=== PATIENT | female | born 1955 | race African-American/Black ===

== ENCOUNTER 2017-10-08 08:10 | Day surgery (SDC) | payer OTHER, BC ==
[2017-10-06 17:05] VITALS: BMI 40.8
--- NOTE | 2017-10-08 09:44 | HP ---
[facility] - Chief Complaint Chief Complaint: left hand pain, numbness History of Present Illness: left CTS History Source: Patient Limitations to Obtaining History: No Limitations - Past Medical History Allergies/Adverse Reactions: Allergies Allergy/AdvReac Type Severity Reaction Status Date / Time Penicillins Allergy Rash Verified 10/08/17 09:18 phenytoin sodium Allergy Rash Verified 10/08/17 09:18 [From Dilantin] phenytoin sodium extended Allergy Rash Verified 10/08/17 09:18 [From Dilantin] - Current Medications Current Medications: Home Medications Medication Instructions Recorded Amlodipine Besylate [Norvasc -] 5 mg PO DAILY 08/30/14 Clonazepam [Klonopin] 0.5 mg PO TID PRN 08/30/14 Escitalopram Oxalate [Lexapro -] 15 mg PO DAILY 08/30/14 Topiramate [Topamax] 100 mg PO BID 08/30/14 Aspirin [Ecotrin] 81 mg PO DAILY 10/06/17 Atorvastatin Ca [Lipitor] 40 mg PO HS 10/06/17 Ergocalciferol (Vitamin D2) 2,000 unit PO DAILY 10/06/17 [Vitamin D2] Ferrous Sulfate [Feosol] 325 mg PO DAILY 10/06/17 Folic Acid 1 mg PO DAILY 10/06/17 Gabapentin [Neurontin -] 600 mg PO Q8H 10/06/17 Insulin Pump Cartridge [Cartridge 1 each SQ DAILY 10/06/17 Stamped] Levothyroxine [Synthroid -] 50 mcg PO DAILY 10/06/17 Losartan/Hydrochlorothiazide 2 each PO DAILY 10/06/17 [Losartan-Hctz 50-12.5 mg Tab] Methotrexate Sodium [Methotrexate] 8 tab PO WEEKLY 10/06/17 [place]-3 Fatty Acids/Fish Oil [Fish 1 each PO BID 10/06/17 Oil 1,000 mg Capsule] Ranitidine HCl 150 mg PO BID 10/06/17 Rotigotine [Neupro] 1 each TD PRN PRN 10/06/17 Satellite Physical Exam - Physical Examination Vital Signs: Vital Signs Period Temp Pulse Resp BP Sys/Crow Pulse Ox Last 24 Hr 97.8 F 94 20 135/73 97 General Appearance: Well Nourished ENT: Clear Lung: Clear to auscultation Heart: Regular rate & rhythm Breasts: Soft Abdomen: Soft Extremities: No edema Satellite Impression/Plan - Impression/Plan Impression: left CTS Operative Procedure: left CTR Date to be Performed: 10/08/17
[2017-10-08] MEDS ORDERED: LIDOCAINE HCL 1%, 10 MG/ML (20ML VIAL) ONE (09:51)
[2017-10-08] MEDS ORDERED: BUPIVACAINE HCL/PF 0.5% (5MG/ML) 10 ML VIAL ONE (09:52)
[2017-10-08] MEDS ORDERED: MIDAZOLAM HCL 2 MG/2 ML SINGLE DOSE VIAL ONE (10:06)
[2017-10-08] MEDS ORDERED: CLINDAMYCIN PHOSPHATE 600 MG/4 ML VIAL ONE (10:18)
[2017-10-08] MEDS ORDERED: CLINDAMYCIN 600 MG PREMIX BAG IVPB ONE (10:19)
[2017-10-08] MEDS ORDERED: PROPOFOL 20 ML ONE (10:28)
[2017-10-08] MEDS ORDERED: BUPIVACAINE HCL/PF 0.5% (5MG/ML) 10 ML VIAL IJ ONE (10:30)
[2017-10-08] MEDS ORDERED: LIDOCAINE HCL 1%, 10 MG/ML (20ML VIAL) NR ONE (10:30)
--- NOTE | 2017-10-08 10:50 | OP ---
Operative Note - Note: Operative Date: 10/08/17 Pre-Operative Diagnosis: left CTS Operation: left CTR, tenosynovectomy Post-Operative Diagnosis: Same as Pre-op Surgeon: Josh Pérez Anesthesiologist/BRICK WHEELER: Naga Blancas Anesthesia: Local, MAC Specimens Removed: tenosynovium Estimated Blood Loss (mls): 0 Blood Volume Replaced (mls): 0 Fluid Volume Replaced (mls): 500 Operative Report Dictated: Yes
[2017-10-08] MEDS ORDERED: ONDANSETRON 4 MG/2 ML VIAL IVPUSH PRN (10:58)
[2017-10-08] MEDS ORDERED: oxyCODONE HCL 5 MG TABLET PO PRN (10:58)
[2017-10-08] MEDS ORDERED: LACTATED RINGERS SOLUTION 1,000 ML IV SCH (11:00)
--- NOTE | 2017-10-08 11:51 | SPEC ---
DATE OF OPERATION: 10/08/2017 PREOPERATIVE DIAGNOSIS: Left carpal tunnel syndrome. POSTOPERATIVE DIAGNOSIS: Left carpal tunnel syndrome. PROCEDURE: Left carpal tunnel release and tenosynovectomy. Tenosynovectomy was performed off of all the flexor tendons. SURGEON: Josh Pérez MD MACHINIST CLASS B: None. ANESTHESIOLOGIST: Dylan Blancas MD ANESTHESIA: MAC anesthesia, local injection of 12 mL 0.5% Marcaine, 1% lidocaine mixed. DRAINS: None. COMPLICATIONS: None. SPECIMENS: Tenosynovium, left wrist. BLOOD LOSS: None. BLOOD GIVEN: None. FLUID REPLACEMENT: 500 mL. After understanding the potential risks, complications, alternatives and benefits of surgery versus nonsurgical treatment, the patient elected to undergo this procedure. DESCRIPTION OF PROCEDURE: The patient was brought to the operating room, peripheral IV placed and intravenous sedation was given. One gram of intravenous Ancef was given. MAC anesthesia was induced. A tourniquet was applied to the left upper arm and the left upper extremity was prepped and draped in sterile fashion. The entire case was done under 3.8 loupe magnification. A marking pen was utilized to armando out a longitudinal incision in an already existing skin crease. Twenty mL of 0.5% Marcaine mixed with 1% Lidocaine was injected in and around the surgical incision. The left upper extremity was elevated, exsanguinated with an Esmarch bandage and the tourniquet inflated to 250 mmHg. A No. 15 scalpel blade was utilized to cut down through the skin. Subcutaneous hemostasis was achieved with the bipolar cautery. Dissection was done through the superficial palmar fascia. Self-retaining retractors were placed into the wound. Under direct visualization, the transverse carpal ligament was transected with a No. 15 scalpel blade, exposing the median nerve and the contents of the carpal tunnel. The distal and proximal extents of the release were completed with a Littler scissor and checked with irrigation and my small finger. They were seen to be complete. Limited dissection was done on the radial side of the median nerve and more extensive dissection was done on the ulnar side of the median nerve. The patients nerve was seen to be quite compressed by epineurium and therefore a limited epineurotomy was performed. A Ragnell retractor was used to gently retract the median nerve in a radial direction. The patient had a lot of tenosynovitis and therefore a tenosynovectomy was performed off all 9 flexor tendons. This was passed off the field as tenosynovium left wrist. The floor of the carpal tunnel was checked. There were no abnormal masses or ganglion cysts. The area was copiously irrigated and washed out and closure begun. Undyed 4-0 Vicryl was used to close the deep dermal layer. Final skin reapproximation was done with horizontal mattress 4-0 nylon sutures. The area was then washed and dried, covered with Xeroform, 4x4s, fluffs between the fingers, Webril and a 4-inch plaster roll was utilized to make a volar splint, which was then wrapped with Robinson and Coban. The tourniquet was taken down after a total tourniquet time of 17 minutes. There were no complications during the case. The patient tolerated the procedure well and was brought to the ambulatory recovery room in stable condition. Nava [id number]
[2017-10-08 12:04] VITALS: TEMP 98.1
[2017-10-08 13:45] VITALS: BP 114/63; PULSE 87
--- NOTE | 2017-10-09 15:48 | PATH ---
Surgical Pathology Report Patient Name: BUTCH REAGAN [facility]. Rec. #: [id number] /Age/Gender: 1955 (Age: 62) / F Account: [id number] Location: [facility] SUR[facility] Taken: 10/08/2017 Received: 10/08/2017 Reported: 10/09/2017 Physicians: Josh Pérez M.D. Specimen(s) Received TENOSYNOVIUM Clinical History Left carpal tunnel Final Diagnosis TENOSYNOVIUM, LEFT, EXCISION: BENIGN DENSE FIBROCONNECTIVE TISSUE. Electronically Signed Minnie Bowers M.D. Gross Description Received in formalin labeled "left tenosynovium," is a 1.5 x 1.2 x 0.3 cm aggregate of jensen-yellow, irregular portions of soft tissue, consistent with tenosynovium. The specimen is entirely submitted in one cassette. 10/08/201710/08/2017
== END 2017-10-08 13:45 | disposition home or self-care (01) ==
LOC: JASU-SURG 08:10
PROVIDERS: ATTEND Orthopaedic Surgery
PROC: 01N50ZZ Release Median Nerve, Open Approach (ICD-10-PCS; principal; 2017-10-08 09:30)
DX: G56.02 Carpal tunnel syndrome, left upper limb (principal)
CPT/HCPCS: 88304-TC

== ENCOUNTER 2022-04-03 19:06 | Observation (INO) | payer OTHER, BC ==
[2022-04-03] MEDS ORDERED: SODIUM CHLORIDE 0.9% 500 ML INFUS.BAG IV ONE (21:01)
[2022-04-03] MEDS ORDERED: ONDANSETRON 4 MG/2 ML VIAL IVPUSH ONE (21:01)
[2022-04-03] MEDS ORDERED: FAMOTIDINE 20 MG/50 ML IVPB 20 MG/50 ML MG IVPB ONE ×2 (21:01→21:29)
[2022-04-03] MEDS ORDERED: ONDANSETRON 4 MG/2 ML VIAL ONE (21:29)
[2022-04-03 21:36] LABS: BASO % 0.4 % (0-2.0); EOS % 0.9 % (0-4.5); HEMATOCRIT 37.5 % (32.4-45.2); HEMOGLOBIN 11.9 GM/dL (10.7-15.3); LYMPH % 22.6 % (8-40); MCH 21.3 pg (25.7-33.7); MCHC 31.8 g/dl (32.0-36.0); MEAN CELL VOLUME 66.9 fl (80-96); MEAN PLT VOLUME 7.9 fl (7.5-11.1); MONO % 9.6 % (3.8-10.2); NEUT % 66.5 % (42.8-82.8); PLATELET COUNT 237 10^3/uL (134-434); RBC 5.61 M/mm3 (3.60-5.2); RDW 14.8 % (11.6-15.6)
[2022-04-03 22:02] LABS: INR 1.08 (0.83-1.09); PROTHROMBIN TIME (PATIENT) 12.4 SEC (9.7-13.0)
[2022-04-03 22:05] LABS: ACTIVATED PTT 26.9 SECONDS (25.2-36.5)
[2022-04-03 22:48] LABS: ANISOCYTOSIS 1+; MACROCYTOSIS 1+; PLATELET ESTIMATE NORMAL
[2022-04-03 23:57] LABS: ALBUMIN 3.5 g/dl (3.4-5.0); CALCIUM 9.6 mg/dL (8.5-10.1); MAGNESIUM 1.7 mg/dL (1.8-2.4)
[2022-04-04 00:01] LABS: BILIRUBIN,TOTAL 0.8 mg/dL (0.2-1); TOT PROT 7.7 g/dl (6.4-8.2)
[2022-04-04] MEDS ORDERED: KETOROLAC TROMETHAMINE 15 MG/ML VIAL IM ONE (03:53)
[2022-04-04] MEDS ORDERED: KETOROLAC TROMETHAMINE 15 MG/ML VIAL ONE (04:02)
[2022-04-04 07:53] LABS: HEMATOCRIT 33.8 % (32.4-45.2); MCH 21.4 pg (25.7-33.7); MCHC 32.5 g/dl (32.0-36.0); MEAN CELL VOLUME 65.9 fl (80-96); MEAN PLT VOLUME 7.9 fl (7.5-11.1); PLATELET COUNT 230 10^3/uL (134-434); RBC 5.14 M/mm3 (3.60-5.2); RDW 14.8 % (11.6-15.6); WHITE BLOOD COUNT 9.6 K/mm3 (4.0-10.0)
[2022-04-04 08:22] LABS: BLOOD UREA NITROGEN 8.5 mg/dL (7-18); MAGNESIUM 1.6 mg/dL (1.8-2.4)
[2022-04-04 08:24] LABS: CREATININE 0.8 mg/dL (0.55-1.3); PHOSPHOROUS 3.2 mg/dL (2.5-4.9)
[2022-04-04 08:26] LABS: BILIRUBIN,TOTAL 0.7 mg/dL (0.2-1); TOT PROT 6.6 g/dl (6.4-8.2)
[2022-04-04] MEDS ORDERED: ESCITALOPRAM OXALATE 10 MG TABLET ONE (09:29)
[2022-04-04] MEDS ORDERED: LOSARTAN POTASSIUM 50 MG TABLET ONE (09:29)
[2022-04-04] MEDS ORDERED: amLODIPine BESYLATE 10 MG TABLET (FP) ONE (09:29)
[2022-04-04] MEDS ORDERED: ENOXAPARIN NA (PORCINE) 40 MG/0.4 ML DISP.SYRIN SQ ONE (09:29)
[2022-04-04] MEDS ORDERED: LEVOTHYROXINE NA 50 MCG TABLET (FP) ONE (09:29)
[2022-04-04] MEDS: ENOXAPARIN NA (PORCINE) 40 MG/0.4 ML DISP.SYRIN SQ SCH (09:40)
[2022-04-04] MEDS: amLODIPine BESYLATE 10 MG TABLET (FP) PO SCH (09:40)
[2022-04-04] MEDS: HYDROCHLOROTHIAZIDE 12.5 MG CAPSULE (FP) PO SCH (09:40)
[2022-04-04] MEDS: ESCITALOPRAM OXALATE 10 MG TABLET PO SCH (09:40)
[2022-04-04] MEDS: LEVOTHYROXINE NA 50 MCG TABLET (FP) PO SCH (09:40)
[2022-04-04] MEDS: LOSARTAN POTASSIUM 50 MG TABLET PO SCH (09:40)
[2022-04-04] MEDS ORDERED: LOSARTAN 50MG/HCTZ 12.5MG 1 TAB PO SCH (10:00)
[2022-04-04 13:32] VITALS: BMI 36.7
[2022-04-04] MEDS ORDERED: PATIENT'S OWN MEDICATION (NON-FORMULARY) (Insulin Aspart [Novolog Flexpen] 100 UNIT/ML Ins SQ SCH (14:00)
[2022-04-04] MEDS ORDERED: ACETAMINOPHEN 325 MG TABLET (FP) PO PRN (15:15)
[2022-04-04] MEDS ORDERED: oxyCODONE HCL 5 MG TABLET PO PRN (15:15)
[2022-04-04] MEDS ORDERED: FAMOTIDINE 10 MG TABLET PO ONE (17:39)
[2022-04-04] MEDS: INSULIN SLIDING SCALE (NOVOLOG) 1 VIAL SQ SCH ×2 (18:18→21:35)
[2022-04-04] MEDS ORDERED: INSULIN (NOVOLOG) ASPART 100 UNITS/ML 10ML VIAL ONE (21:23)
[2022-04-04] MEDS: ATORVASTATIN CA 80 MG TABLET (FP) PO SCH (21:33)
[2022-04-04] MEDS: FAMOTIDINE 10 MG TABLET PO PRN (21:35)
[2022-04-05] MEDS: INSULIN SLIDING SCALE (NOVOLOG) 1 VIAL SQ SCH ×4 (06:43→21:25)
[2022-04-05] MEDS: LEVOTHYROXINE NA 50 MCG TABLET (FP) PO SCH (06:44)
[2022-04-05] MEDS: FAMOTIDINE 10 MG TABLET PO PRN ×2 (06:45→12:02)
[2022-04-05 08:53] LABS: BASO % 0.3 % (0-2.0); EOS % 1.3 % (0-4.5); HEMATOCRIT 34.7 % (32.4-45.2); HEMOGLOBIN 11.4 GM/dL (10.7-15.3); LYMPH % 19.7 % (8-40); MCH 21.6 pg (25.7-33.7); MCHC 32.9 g/dl (32.0-36.0); MEAN CELL VOLUME 65.9 fl (80-96); MEAN PLT VOLUME 7.9 fl (7.5-11.1); MONO % 7.9 % (3.8-10.2); NEUT % 70.8 % (42.8-82.8); PLATELET COUNT 235 10^3/uL (134-434); RBC 5.27 M/mm3 (3.60-5.2); RDW 14.5 % (11.6-15.6); WHITE BLOOD COUNT 7.9 K/mm3 (4.0-10.0)
[2022-04-05 09:18] LABS: CALCIUM 9.3 mg/dL (8.5-10.1)
[2022-04-05 09:20] LABS: CREATININE 0.9 mg/dL (0.55-1.3)
[2022-04-05] MEDS: ENOXAPARIN NA (PORCINE) 40 MG/0.4 ML DISP.SYRIN SQ SCH (11:59)
[2022-04-05] MEDS: ESCITALOPRAM OXALATE 10 MG TABLET PO SCH (12:00)
[2022-04-05] MEDS: HYDROCHLOROTHIAZIDE 12.5 MG CAPSULE (FP) PO SCH (12:01)
[2022-04-05] MEDS: amLODIPine BESYLATE 10 MG TABLET (FP) PO SCH (12:01)
[2022-04-05] MEDS: LOSARTAN POTASSIUM 50 MG TABLET PO SCH (12:01)
[2022-04-05 15:30] LABS: PH,URINE 5.5 (5.0-8.0); URINE APPEARANCE CLEAR; URINE BILIRUBIN NEGATIVE (NEGATIVE); URINE COLOR YELLOW; URINE GLUCOSE (UA) 1+ (NEGATIVE); URINE KETONE TRACE (NEGATIVE); URINE LEUK ESTERASE NEGATIVE (NEGATIVE); URINE NITRITE NEGATIVE (NEGATIVE); URINE PROTEIN TRACE (NEGATIVE); URINE UROBILINOGEN 0.2 mg/dL (0.2-1.0)
[2022-04-05] MEDS: FAMOTIDINE 10 MG TABLET PO SCH (21:21)
[2022-04-05] MEDS: ATORVASTATIN CA 80 MG TABLET (FP) PO SCH (21:21)
[2022-04-05] MEDS ORDERED: ONDANSETRON 4 MG/2 ML VIAL IVPUSH ONE (21:35)
[2022-04-05] MEDS ORDERED: INSULIN (LEVEMIR) 100 UNITS/ML UNITS SQ SCH (22:00)
[2022-04-06] MEDS: LEVOTHYROXINE NA 50 MCG TABLET (FP) PO SCH (06:30)
[2022-04-06] MEDS: INSULIN SLIDING SCALE (NOVOLOG) 1 VIAL SQ SCH ×2 (06:33→11:56)
[2022-04-06 10:47] VITALS: BP 118/53; PULSE 81; RESP 20; TEMP 98.2
[2022-04-06] MEDS: FAMOTIDINE 10 MG TABLET PO SCH (10:48)
[2022-04-06] MEDS: HYDROCHLOROTHIAZIDE 12.5 MG CAPSULE (FP) PO SCH (10:48)
[2022-04-06] MEDS: ESCITALOPRAM OXALATE 10 MG TABLET PO SCH (10:48)
[2022-04-06] MEDS: LOSARTAN POTASSIUM 50 MG TABLET PO SCH (10:48)
[2022-04-06] MEDS: amLODIPine BESYLATE 10 MG TABLET (FP) PO SCH (10:48)
[2022-04-06] MEDS: ENOXAPARIN NA (PORCINE) 40 MG/0.4 ML DISP.SYRIN SQ SCH (11:00)
== END 2022-04-06 13:00 | disposition home or self-care (01) ==
LOC: JER 19:06 → INTOOBSV 04-04 01:52 → UNDOADMOB 04-04 01:52 → JERBED 04-04 01:52 → J7W 04-04 11:47
PROVIDERS: ADMIT Internal Medicine; ATTEND Internal Medicine
PROC: 3E013VG Introduction of Insulin into Subcutaneous Tissue, Percutaneous Approach (ICD-10-PCS; principal; 2022-04-04)
PROC: 3E0233Z Introduction of Anti-inflammatory into Muscle, Percutaneous Approach (ICD-10-PCS; 2022-04-04)
PROC: 3E033GC Introduction of Other Therapeutic Substance into Peripheral Vein, Percutaneous Approach (ICD-10-PCS; 2022-04-04)
PROC: 3E0337Z Introduction of Electrolytic and Water Balance Substance into Peripheral Vein, Percutaneous Approach (ICD-10-PCS; 2022-04-04)
DX: K86.9 Disease of pancreas, unspecified (principal); E03.9 Hypothyroidism, unspecified; E11.9 Type 2 diabetes mellitus without complications; I10 Essential (primary) hypertension; R10.13 Epigastric pain; E78.5 Hyperlipidemia, unspecified; E66.9 Obesity, unspecified; Z68.36 Body mass index [BMI] 36.0-36.9, adult; R29.6 Repeated falls; K44.9 Diaphragmatic hernia without obstruction or gangrene; G47.30 Sleep apnea, unspecified; F41.8 Other specified anxiety disorders; Z88.8 Allergy status to other drugs, medicaments and biological substances; Z88.0 Allergy status to penicillin
CPT/HCPCS: 0241U-QW; 36415; 71045-TC-FY; 74177-TC; 80048; 80053; 81003; 82105; 82728; 82962; 83540; 83550; 83655; 83690; 83735; 84100; 84484; 85025; 85027; 85610; 85730; 86301; 86850; 86900; 86901; 87086; 93005; 93010; 96365; 96372; 96375; 96376; 99285-25; C9803-CS; G0378; U0003; U0005

== ENCOUNTER 2022-10-03 18:33 | Emergency (ER) | payer OTHER, BC ==
[2022-10-03 18:49] VITALS: BMI 36.2
[2022-10-03] MEDS ORDERED: SODIUM CHLORIDE 1,000 ML IV STA (19:54)
[2022-10-03] MEDS ORDERED: ONDANSETRON 4 MG/2 ML VIAL IVPUSH ONE (19:54)
[2022-10-03] MEDS ORDERED: MAG HYDROX/AL HYDROX/SIMETH 30 ML UNIT-DOSE CUP PO ONE (19:54)
[2022-10-03] MEDS ORDERED: FAMOTIDINE 20 MG/50 ML IVPB 20 MG/50 ML MG IVPB ONE (19:54)
[2022-10-03] MEDS ORDERED: ACETAMINOPHEN 1000 MG/100 ML BAG IVPB ONE (19:54)
[2022-10-03] MEDS ORDERED: MAG HYDROX/AL HYDROX/SIMETH 30 ML UNIT-DOSE CUP ONE (20:32)
[2022-10-03] MEDS ORDERED: ACETAMINOPHEN INJECTION 100 ML IVPB ONE (20:32)
[2022-10-03] MEDS ORDERED: FAMOTIDINE 10 MG/ML VIAL IVPB ONE (20:33)
[2022-10-03] MEDS ORDERED: ONDANSETRON 4 MG/2 ML VIAL ONE (20:33)
[2022-10-03 21:09] LABS: BASO % 0.2 % (0-2.0); EOS % 0.8 % (0-4.5); HEMATOCRIT 37.3 % (32.4-45.2); HEMOGLOBIN 12.2 GM/dL (10.7-15.3); LYMPH % 18.2 % (8-40); MCH 22.1 pg (25.7-33.7); MCHC 32.7 g/dl (32.0-36.0); MEAN CELL VOLUME 67.6 fl (80-96); MEAN PLT VOLUME 7.2 fl (7.5-11.1); MONO % 6.3 % (3.8-10.2); NEUT % 74.5 % (42.8-82.8); PLATELET COUNT 315 10^3/uL (134-434); RBC 5.52 M/mm3 (3.60-5.2); RDW 15.4 % (11.6-15.6); WHITE BLOOD COUNT 9.9 K/mm3 (4.0-10.0)
[2022-10-03 21:31] LABS: ALBUMIN 3.5 g/dl (3.4-5.0); BLOOD UREA NITROGEN 18.9 mg/dL (7-18); CALCIUM 10.1 mg/dL (8.5-10.1); MAGNESIUM 1.4 mg/dL (1.8-2.4)
[2022-10-03 21:34] LABS: CREATININE 1.1 mg/dL (0.55-1.3); PHOSPHOROUS 3.6 mg/dL (2.5-4.9)
[2022-10-03 21:36] LABS: BILIRUBIN,TOTAL 0.8 mg/dL (0.2-1)
[2022-10-03] MEDS ORDERED: MAGNESIUM SULF 50% (8.12 MEQ/2 ML-1 GM VIAL) IVPB ONE (22:08)
[2022-10-03] MEDS ORDERED: MAGNESIUM SULFATE IN WATER 2 GM/50 ML IVPB IVPB ONE (22:45)
[2022-10-04 01:58] VITALS: BP 107/62; PULSE 82; RESP 16; TEMP 97.5
== END 2022-10-04 02:06 | disposition home or self-care (01) ==
LOC: JER 18:33
PROC: 3E033GC Introduction of Other Therapeutic Substance into Peripheral Vein, Percutaneous Approach (ICD-10-PCS; principal; 2022-10-03)
DX: R10.84 Generalized abdominal pain (principal)
CPT/HCPCS: 36415; 71046-TC-FY; 74177-TC; 80053; 82962; 83605; 83690; 83735; 84100; 85025; 93005; 93010; 99285-25; Q9967

== ENCOUNTER 2023-07-14 22:03 | Emergency (ER) | payer OTHER, BC ==
[2023-07-14 22:36] VITALS: BP 149/77; PULSE 95; RESP 18; TEMP 99.1; BMI 36.8
[2023-07-14] MEDS ORDERED: KETOROLAC TROMETHAMINE 30 MG/1 ML VIAL IM ONE (23:45)
[2023-07-14] MEDS ORDERED: KETOROLAC TROMETHAMINE 30 MG/1 ML VIAL ONE (23:47)
[2023-07-15 01:20] LABS: BASO % 0.2 % (0-2.0); EOS % 0.7 % (0-4.5); HEMATOCRIT 36.9 % (32.4-45.2); HEMOGLOBIN 11.4 GM/dL (10.7-15.3); LYMPH % 16.6 % (8-40); MCHC 30.9 g/dl (32.0-36.0); MEAN CELL VOLUME 67.8 fl (80-96); MEAN PLT VOLUME 7.9 fl (7.5-11.1); MONO % 8.6 % (3.8-10.2); NEUT % 73.9 % (42.8-82.8); PLATELET COUNT 228 10^3/uL (134-434); RBC 5.44 M/mm3 (3.60-5.2); WHITE BLOOD COUNT 14.3 K/mm3 (4.0-10.0)
[2023-07-15 01:36] LABS: POTASSIUM 3.7 mmol/L (3.5-5.1)
[2023-07-15 01:39] LABS: ALBUMIN 3.2 g/dl (3.4-5.0); BLOOD UREA NITROGEN 11.4 mg/dL (7-18); CALCIUM 9.1 mg/dL (8.5-10.1)
[2023-07-15 01:45] LABS: BILIRUBIN,TOTAL 0.9 mg/dL (0.2-1); TOT PROT 7.2 g/dl (6.4-8.2)
[2023-07-15 05:09] LABS: ANISOCYTOSIS 3+; MACROCYTOSIS 0
== END 2023-07-15 02:44 | disposition home or self-care (01) ==
LOC: JER 22:03
PROC: 3E0233Z Introduction of Anti-inflammatory into Muscle, Percutaneous Approach (ICD-10-PCS; principal; 2023-07-14)
DX: M94.0 Chondrocostal junction syndrome [Tietze] (principal); R05.1 Acute cough; R07.89 Other chest pain; Z20.822 Contact with and (suspected) exposure to COVID-19
CPT/HCPCS: 0241U-QW; 36415; 71046-TC-FY; 80053; 84484; 85025; 85379; 93005; 93010; 96372; 99285-25

== ENCOUNTER 2024-02-16 11:33 | Observation (INO) | payer OTHER, BC ==
[2024-02-16] MEDS ORDERED: ONDANSETRON 4 MG/2 ML VIAL ONE (12:42)
[2024-02-16] MEDS ORDERED: MECLIZINE HCL 25 MG TABLET (FP) ONE (12:42)
[2024-02-16] MEDS: LACTATED RINGERS SOLUTION 1000 ML INFUS.BAG IV ONE (12:47)
[2024-02-16] MEDS: MECLIZINE HCL 25 MG TABLET (FP) PO ONE (12:47)
[2024-02-16] MEDS: ONDANSETRON 4 MG/2 ML VIAL IVPUSH ONE (12:47)
[2024-02-16 12:53] LABS: BASO % 0.4 % (0-2.0); EOS % 0.9 % (0-4.5); HEMATOCRIT 35.7 % (32.4-45.2); HEMOGLOBIN 11.5 GM/dL (10.7-15.3); LYMPH % 16.5 % (8-40); MCH 21.7 pg (25.7-33.7); MCHC 32.3 g/dl (32.0-36.0); MEAN CELL VOLUME 67.4 fl (80-96); MEAN PLT VOLUME 7.7 fl (7.5-11.1); MONO % 6.8 % (3.8-10.2); NEUT % 75.4 % (42.8-82.8); PLATELET COUNT 248 10^3/uL (134-434); RDW 14.7 % (11.6-15.6); WHITE BLOOD COUNT 10.7 K/mm3 (4.0-10.0)
[2024-02-16 13:03] LABS: INR 1.01 (0.83-1.09); PROTHROMBIN TIME (PATIENT) 11.6 SEC (9.7-13.0)
[2024-02-16 13:20] LABS: POTASSIUM 3.8 mmol/L (3.5-5.1)
[2024-02-16 13:24] LABS: ALBUMIN 3.3 g/dl (3.4-5.0); BLOOD UREA NITROGEN 9.6 mg/dL (7-18); MAGNESIUM 1.7 mg/dL (1.8-2.4)
[2024-02-16 13:27] LABS: CREATININE 0.9 mg/dL (0.55-1.3)
[2024-02-16 13:29] LABS: BILIRUBIN,TOTAL 0.5 mg/dL (0.2-1); TOT PROT 7.3 g/dl (6.4-8.2)
[2024-02-16] MEDS ORDERED: MAGNESIUM SULFATE IN WATER 2 GM/50 ML IVPB IVPB ONE ×2 (14:12→14:40)
[2024-02-16] MEDS: MAGNESIUM SULFATE IN WATER 2 GM/50 ML IVPB IVPB ONE (14:19)
[2024-02-16 14:52] LABS: ANISOCYTOSIS 2+; MACROCYTOSIS 0
[2024-02-16] MEDS: ATORVASTATIN CA 40 MG TABLET (FP) PO ONE (17:45)
[2024-02-16] MEDS ORDERED: MECLIZINE HCL 25 MG TABLET (FP) PO PRN (17:46)
[2024-02-16] MEDS ORDERED: ATORVASTATIN CA 40 MG TABLET (FP) ONE (17:47)
[2024-02-16] MEDS ORDERED: ASPIRIN 81 MG CHEWABLE TABLETS ONE (17:48)
[2024-02-16] MEDS ORDERED: ASPIRIN 325 MG ENTERIC COATED TABLET (FP) ONE (17:59)
[2024-02-16] MEDS: ASPIRIN 325 MG ENTERIC COATED TABLET (FP) PO ONE (18:15)
[2024-02-16] MEDS: ASPIRIN 81 MG CHEWABLE TABLETS PO ONE (18:15)
[2024-02-16 21:58] LABS: CHOLESTEROL 236 mg/dL (50-200)
[2024-02-16 21:59] LABS: LDL CHOLESTEROL (ONLY SJRH) 162 mg/dL (5-100)
[2024-02-16 22:01] LABS: HDL CHOLESTEROL 33 mg/dL (40-60)
[2024-02-16] MEDS ORDERED: ATORVASTATIN CA 80 MG TABLET (FP) ONE (22:44)
[2024-02-16] MEDS ORDERED: ESCITALOPRAM OXALATE 10 MG TABLET ONE (22:44)
[2024-02-16] MEDS ORDERED: HEPARIN NA (PORCINE) 5,000 UNITS/ML 1ML VIAL ONE (22:44)
[2024-02-16] MEDS ORDERED: INSULIN (LEVEMIR) 100 UNITS/ML UNITS SQ ONE ×2 (22:45→23:12)
[2024-02-16] MEDS ORDERED: FAMOTIDINE 20 MG TABLET ONE (22:46)
[2024-02-16] MEDS: ESCITALOPRAM OXALATE 10 MG TABLET PO ONE (22:54)
[2024-02-16] MEDS: ATORVASTATIN CA 80 MG TABLET (FP) PO SCH (22:54)
[2024-02-16] MEDS: FAMOTIDINE 20 MG TABLET PO SCH (22:54)
[2024-02-16] MEDS: HEPARIN NA (PORCINE) 5,000 UNITS/ML 1ML VIAL SQ SCH (22:54)
[2024-02-16] MEDS: INSULIN (LEVEMIR) 100 UNITS/ML UNITS SQ SCH (23:23)
[2024-02-17] MEDS ORDERED: INSULIN ASPART SLIDING SCALE (NOVOLOG) 1 VIAL SQ SCH ×2 (07:00)
[2024-02-17 07:50] LABS: BASO % 0.4 % (0-2.0); EOS % 1.9 % (0-4.5); HEMATOCRIT 36.6 % (32.4-45.2); HEMOGLOBIN 11.7 GM/dL (10.7-15.3); LYMPH % 26.4 % (8-40); MCH 21.5 pg (25.7-33.7); MEAN CELL VOLUME 67.1 fl (80-96); MEAN PLT VOLUME 7.9 fl (7.5-11.1); NEUT % 64.3 % (42.8-82.8); PLATELET COUNT 241 10^3/uL (134-434); RBC 5.46 M/mm3 (3.60-5.2); RDW 14.6 % (11.6-15.6); WHITE BLOOD COUNT 9.4 K/mm3 (4.0-10.0)
[2024-02-17 08:17] LABS: CALCIUM 9.6 mg/dL (8.5-10.1)
[2024-02-17 08:18] LABS: BLOOD UREA NITROGEN 13.9 mg/dL (7-18)
[2024-02-17 08:21] LABS: CREATININE 0.9 mg/dL (0.55-1.3)
[2024-02-17] MEDS: LEVOTHYROXINE NA 50 MCG TABLET (FP) PO SCH (10:09)
[2024-02-17] MEDS: ESCITALOPRAM OXALATE 10 MG TABLET PO SCH (10:11)
[2024-02-17] MEDS: amLODIPine BESYLATE 10 MG TABLET (FP) PO SCH (10:11)
[2024-02-17] MEDS: LOSARTAN 50MG/HCTZ 12.5MG 1 TAB PO SCH (10:11)
[2024-02-17] MEDS ORDERED: INSULIN ASPART SLIDING SCALE (NOVOLOG) 1 VIAL SQ ONE ×2 (13:34→19:18)
[2024-02-17] MEDS: INSULIN ASPART SLIDING SCALE (NOVOLOG) 1 VIAL SQ SCH ×2 (13:41→23:00)
[2024-02-17] MEDS ORDERED: FAMOTIDINE 20 MG TABLET ONE (21:56)
[2024-02-17] MEDS ORDERED: ATORVASTATIN CA 80 MG TABLET (FP) ONE (21:57)
[2024-02-17] MEDS ORDERED: INSULIN (LEVEMIR) 100 UNITS/ML UNITS SQ ONE (21:57)
[2024-02-17] MEDS ORDERED: HEPARIN NA (PORCINE) 5,000 UNITS/ML 1ML VIAL ONE (21:57)
[2024-02-17] MEDS ORDERED: MECLIZINE HCL 12.5 MG TABLET ONE (21:57)
[2024-02-17] MEDS: MECLIZINE HCL 12.5 MG TABLET PO SCH (22:19)
[2024-02-17] MEDS: INSULIN (LEVEMIR) 100 UNITS/ML UNITS SQ SCH (22:19)
[2024-02-18 01:40] VITALS: RESP 18; BMI 28.3
[2024-02-18 06:43] LABS: BASO % 0.4 % (0-2.0); EOS % 2.2 % (0-4.5); HEMOGLOBIN 11.5 GM/dL (10.7-15.3); LYMPH % 25.2 % (8-40); MCH 21.9 pg (25.7-33.7); MCHC 32.8 g/dl (32.0-36.0); MEAN CELL VOLUME 66.7 fl (80-96); MEAN PLT VOLUME 7.7 fl (7.5-11.1); MONO % 7.8 % (3.8-10.2); NEUT % 64.4 % (42.8-82.8); PLATELET COUNT 247 10^3/uL (134-434); RBC 5.25 M/mm3 (3.60-5.2); RDW 14.6 % (11.6-15.6); WHITE BLOOD COUNT 8.8 K/mm3 (4.0-10.0)
[2024-02-18 06:55] LABS: POTASSIUM 3.8 mmol/L (3.5-5.1)
[2024-02-18 06:57] LABS: BLOOD UREA NITROGEN 14.2 mg/dL (7-18)
[2024-02-18 07:00] LABS: CREATININE 0.9 mg/dL (0.55-1.3)
[2024-02-18] MEDS: INSULIN ASPART SLIDING SCALE (NOVOLOG) 1 VIAL SQ SCH (11:19)
[2024-02-19 08:34] VITALS: BP 129/76; PULSE 90; TEMP 98.3
== END 2024-02-19 14:27 | disposition home or self-care (01) ==
LOC: JER 11:33 → JERBED 16:49 → J4S 02-17 23:42
PROVIDERS: ADMIT Internal Medicine; ATTEND Nurse Practitioner
PROC: 3E033GC Introduction of Other Therapeutic Substance into Peripheral Vein, Percutaneous Approach (ICD-10-PCS; principal; 2024-02-16)
PROC: 3E033NZ Introduction of Analgesics, Hypnotics, Sedatives into Peripheral Vein, Percutaneous Approach (ICD-10-PCS; 2024-02-16)
PROC: 3E013VG Introduction of Insulin into Subcutaneous Tissue, Percutaneous Approach (ICD-10-PCS; 2024-02-16)
PROC: 3E013GC Introduction of Other Therapeutic Substance into Subcutaneous Tissue, Percutaneous Approach (ICD-10-PCS; 2024-02-16)
PROC: 3E0337Z Introduction of Electrolytic and Water Balance Substance into Peripheral Vein, Percutaneous Approach (ICD-10-PCS; 2024-02-16)
DX: R42 Dizziness and giddiness (principal); I10 Essential (primary) hypertension; E11.40 Type 2 diabetes mellitus with diabetic neuropathy, unspecified; E03.9 Hypothyroidism, unspecified; H91.90 Unspecified hearing loss, unspecified ear; Z88.0 Allergy status to penicillin; Z88.1 Allergy status to other antibiotic agents; Z88.8 Allergy status to other drugs, medicaments and biological substances; Z79.4 Long term (current) use of insulin
CPT/HCPCS: 36415; 70450-TC; 70551-TC; 80048; 80053; 80061; 82962; 83735; 84484; 85025; 85610; 85730; 86850; 86900; 86901; 93005; 93010; 96365; 96372; 96375; 97116-GP; 97162-GP; 99285-25; G0378; J1644

== ENCOUNTER 2025-05-02 19:00 | Inpatient (IN) | payer OTHER, BC ==
[2025-05-02] MEDS ORDERED: INSULIN GLARGINE (LANTUS) 100 UNITS/ML UNITS SQ ONE (19:51)
[2025-05-02 19:53] LABS: BG HCT 37.0 % (32.4-45.2); VENOUS BASE EXCESS 0.6 mmol/L (-2-2); VENOUS O2 SATURATION 29.1 % (70-80); VENOUS PCO2 48.4 mmHg (38-52); VENOUS PH 7.358 (7.310-7.410)
[2025-05-02 19:58] LABS: MCHC 30.5 g/dl (32.2-35.5); MEAN CELL VOLUME 71.1 fl (79.4-94.8); MEAN PLT VOLUME 9.6 fl (9.4-12.3); RDW 15.3 % (12.4-16.4)
[2025-05-02] MEDS: LACTATED RINGERS SOLUTION 1000 ML INFUS.BAG IV ONE (20:05)
[2025-05-02] MEDS: INSULIN GLARGINE (LANTUS) 100 UNITS/ML UNITS SQ SCH (20:05)
[2025-05-02] MEDS ORDERED: VANCOMYCIN 1,000 MG in DEXTROSE 5%-WATER - 250 ML IVPB ONE (20:11)
[2025-05-02] MEDS ORDERED: CEFEPIME HCL 1 GM VIAL (RESTRICTED TO ID) IVPB ONE (20:12)
[2025-05-02] MEDS: SODIUM CHLORIDE 0.9% 500 ML INFUS.BAG IV ONE (20:28)
[2025-05-02 20:51] LABS: GLUCOSE,RANDOM 385.0 mg/dL (74-106)
[2025-05-02 20:52] LABS: TOT PROT 7.8 g/dl (6.4-8.2)
[2025-05-02 20:54] LABS: ALK PHOS 165.0 U/L (40-150)
[2025-05-02 20:57] LABS: LACTIC ACID 2.4 mmol/L (0.4-2.0); SGOT/AST 21.0 U/L (5-34); SGPT/ALT 12.0 U/L (0-55)
[2025-05-02 20:58] LABS: CREATININE 0.95 mg/dL (0.55-1.3)
[2025-05-02 21:23] LABS: CO2 19.0 mmol/L (21-32)
[2025-05-02] MEDS ORDERED: CEFEPIME HCL/D5W 1 GM/50 ML BAG IVPB ONE (21:27)
[2025-05-02] MEDS: CEFEPIME HCL/D5W 1 GM/50 ML BAG IVPB ONE (21:52)
[2025-05-02 23:03] LABS: LACTIC ACID 2.3 mmol/L (0.4-2.0)
[2025-05-02] MEDS ORDERED: VANCOMYCIN 1 GM PREMIX (F) 1 GM/200 ML BAG ONE ×2 (23:18)
[2025-05-02] MEDS: VANCOMYCIN 1 GM PREMIX (F) 1 GM/200 ML BAG IVPB ONE (23:27)
[2025-05-02 23:37] LABS: URINE APPEARANCE CLOUDY; URINE BILIRUBIN NEGATIVE (NEGATIVE); URINE COLOR YELLOW; URINE GLUCOSE (UA) 3+ (NEGATIVE); URINE KETONE TRACE (NEGATIVE); URINE LEUK ESTERASE NEGATIVE (NEGATIVE); URINE NITRITE NEGATIVE (NEGATIVE); URINE PROTEIN TRACE (NEGATIVE); URINE UROBILINOGEN 0.2 mg/dL (0.2-1.0)
[2025-05-03] MEDS ORDERED: ACETAMINOPHEN 1000 MG/100 ML BAG IVPB PRN ×2 (02:11→18:55)
[2025-05-03] MEDS ORDERED: BENZOCAINE/MENTH/CETYLPYRD CL 1 EACH LOZENGE MM PRN ×2 (02:11→18:55)
[2025-05-03] MEDS ORDERED: methylPREDNISolone NA SUCC 125 MG/2 ML VIAL ONE (02:53)
[2025-05-03] MEDS: methylPREDNISolone NA SUCC 125 MG/2 ML VIAL IVPUSH ONE (03:00)
[2025-05-03] MEDS: INSULIN (NOVOLOG) ASPART 100 UNITS/ML 10ML VIAL SQ ONE ×3 (04:57→15:13)
[2025-05-03] MEDS: SODIUM CHLORIDE 500 ML IV STA (04:58)
[2025-05-03] MEDS: LEVOTHYROXINE NA 25 MCG TABLET (FP) PO SCH (06:14)
[2025-05-03 07:37] LABS: MCHC 30.5 g/dl (32.2-35.5); MEAN CELL VOLUME 71.1 fl (79.4-94.8); MEAN PLT VOLUME 9.8 fl (9.4-12.3); RDW 15.2 % (12.4-16.4)
[2025-05-03 09:14] LABS: ALK PHOS 155 U/L (40-150); CO2 24 mmol/L (21-32); GLUCOSE,RANDOM 406 mg/dL (74-106); TOT PROT 7.5 g/dl (6.4-8.2)
[2025-05-03 09:15] LABS: CREATININE 0.86 mg/dL (0.55-1.3); SGOT/AST 13 U/L (5-34); SGPT/ALT 15 U/L (0-55)
[2025-05-03] MEDS ORDERED: CEFTRIAXONE 1,000 MG in DEXTROSE 5%-WATER - 50 ML IVPB SCH (11:00)
[2025-05-03] MEDS ORDERED: LACTATED RINGERS SOLUTION 1,000 ML/1,000 ML INFUS.BAG IV SCH (11:00)
[2025-05-03] MEDS: ASPIRIN 81 MG CHEWABLE TABLETS PO SCH (11:27)
[2025-05-03] MEDS: GABAPENTIN 100 MG CAPSULE PO SCH (11:27)
[2025-05-03] MEDS: ENOXAPARIN NA (PORCINE) 40 MG/0.4 ML DISP.SYRIN SQ SCH (11:27)
[2025-05-03] MEDS: ESCITALOPRAM OXALATE 20 MG TABLET PO SCH (11:27)
[2025-05-03] MEDS: amLODIPine BESYLATE 10 MG TABLET (FP) PO SCH (11:27)
[2025-05-03] MEDS: LACTATED RINGERS SOLUTION 1,000 ML/1,000 ML INFUS.BAG IV SCH (11:31)
[2025-05-03] MEDS: INSULIN GLARGINE (LANTUS) 100 UNITS/ML UNITS SQ ONE (11:32)
[2025-05-03] MEDS: INSULIN ASPART SLIDING SCALE (NOVOLOG) 1 VIAL SQ SCH ×2 (11:50→12:23)
[2025-05-03] MEDS: CEFTRIAXONE 1 GM in DEXTROSE 5%-WATER - 50 ML IVPB ONE (14:00)
[2025-05-03] MEDS ORDERED: CEFTRIAXONE 1 GM in DEXTROSE 5%-WATER - 50 ML IVPB ONE ×2 (14:00→18:55)
[2025-05-03] MEDS: CLOTRIMAZOLE 1% CREAM TP SCH ×2 (14:35→21:22)
[2025-05-03] MEDS: SODIUM CHLORIDE 1,000 ML IV SCH ×3 (16:11→19:40)
[2025-05-03 16:27] LABS: GLUCOSE,RANDOM 613 mg/dL (74-106); TOT PROT 7.8 g/dl (6.4-8.2)
[2025-05-03 16:28] LABS: CO2 19 mmol/L (21-32)
[2025-05-03 16:30] LABS: ALK PHOS 167 U/L (40-150)
[2025-05-03 16:32] LABS: LACTIC ACID 4.6 mmol/L (0.4-2.0); SGPT/ALT 17 U/L (0-55)
[2025-05-03 16:33] LABS: CREATININE 0.97 mg/dL (0.55-1.3); SGOT/AST 17 U/L (5-34)
[2025-05-03] MEDS ORDERED: DEXTROSE 50%-WATER 25 GM/50 ML DISP.SYRIN IVPUSH PRN (16:40)
[2025-05-03] MEDS ORDERED: INSULIN REGULAR HUMAN 100 UNITS/ML *VIAL IVPUSH ONE (16:40)
[2025-05-03] MEDS: INSULIN (NOVOLOG) ASPART 100 UNITS/ML 10ML VIAL SQ SCH (16:41)
[2025-05-03] MEDS ORDERED: INSULIN REGULAR 100 UNITS in SODIUM CHLORIDE 99 ML IVPB SCH (17:15)
[2025-05-03] MEDS: INSULIN REGULAR HUMAN 100 UNITS/ML *VIAL IVPUSH ONE ×2 (18:06→19:04)
[2025-05-03 18:07] LABS: LACTIC ACID 4.2 mmol/L (0.4-2.0)
[2025-05-03] MEDS ORDERED: DEXTROSE 50%-WATER - 25 GM/50 ML VIAL IVPUSH PRN (18:55)
[2025-05-03] MEDS: INSULIN REGULAR 100 UNITS in SODIUM CHLORIDE 99 ML IVPB SCH (18:56)
[2025-05-03] MEDS: CEFTRIAXONE 1,000 MG in DEXTROSE 5%-WATER - 50 ML IVPB ONE (20:08)
[2025-05-03 20:25] LABS: GLUCOSE,RANDOM 384.0 mg/dL (74-106)
[2025-05-03 20:31] LABS: CREATININE 0.9 mg/dL (0.55-1.3)
[2025-05-03 20:31] LABS: LACTIC ACID 3.7 mmol/L (0.4-2.0)
[2025-05-03] MEDS ORDERED: SODIUM CHLORIDE 1,000 ML IV SCH (20:45)
[2025-05-03 21:06] LABS: CO2 17.0 mmol/L (21-32)
[2025-05-03] MEDS: MUPIROCIN 2% TOPICAL OINTMENT FOR DECOLONIZATION NS SCH (21:21)
[2025-05-03] MEDS: ATORVASTATIN CA 80 MG TABLET (FP) PO SCH (21:21)
[2025-05-03] MEDS: SODIUM CHLORIDE 0.45% 1,000 ML IV SCH (21:21)
[2025-05-03] MEDS: CHLORHEXIDINE GLUCONATE 4% CLEANSER FOR DECOLONIZATION TP SCH (21:21)
[2025-05-03] MEDS ORDERED: ATORVASTATIN CA 80 MG TABLET (FP) PO SCH (22:00)
[2025-05-03] MEDS ORDERED: INSULIN GLARGINE (LANTUS) 100 UNITS/ML UNITS SQ SCH (22:00)
[2025-05-03] MEDS: DEXTROSE 5%-0.45% SALINE 1,000 ML IV SCH (22:34)
[2025-05-04 00:09] LABS: GLUCOSE,RANDOM 219.0 mg/dL (74-106)
[2025-05-04 00:10] LABS: TOT PROT 7.1 g/dl (6.4-8.2)
[2025-05-04 00:11] LABS: CO2 20.0 mmol/L (21-32)
[2025-05-04 00:13] LABS: ALK PHOS 135.0 U/L (40-150)
[2025-05-04 00:15] LABS: SGOT/AST 14.0 U/L (5-34); SGPT/ALT 14.0 U/L (0-55)
[2025-05-04 00:16] LABS: CREATININE 0.9 mg/dL (0.55-1.3); LACTIC ACID 2.4 mmol/L (0.4-2.0)
[2025-05-04 05:12] LABS: GLUCOSE,RANDOM 197.0 mg/dL (74-106)
[2025-05-04 05:13] LABS: TOT PROT 6.7 g/dl (6.4-8.2)
[2025-05-04 05:15] LABS: ALK PHOS 127.0 U/L (40-150)
[2025-05-04 05:18] LABS: CREATININE 0.87 mg/dL (0.55-1.3); SGOT/AST 14.0 U/L (5-34); SGPT/ALT 13.0 U/L (0-55)
[2025-05-04 05:36] LABS: CO2 21.0 mmol/L (21-32)
[2025-05-04] MEDS: INSULIN ASPART SLIDING SCALE (NOVOLOG) 1 VIAL SQ SCH (06:36)
[2025-05-04] MEDS: LEVOTHYROXINE NA 25 MCG TABLET (FP) PO SCH (06:37)
[2025-05-04 06:59] LABS: MCHC 30.5 g/dl (32.2-35.5); MEAN CELL VOLUME 70.5 fl (79.4-94.8); MEAN PLT VOLUME 10.0 fl (9.4-12.3); RDW 15.1 % (12.4-16.4)
[2025-05-04] MEDS ORDERED: INSULIN GLARGINE (LANTUS) 100 UNITS/ML UNITS SQ SCH (09:00)
[2025-05-04] MEDS: ESCITALOPRAM OXALATE 20 MG TABLET PO SCH (09:10)
[2025-05-04] MEDS: GABAPENTIN 100 MG CAPSULE PO SCH (09:10)
[2025-05-04] MEDS: amLODIPine BESYLATE 10 MG TABLET (FP) PO SCH (09:10)
[2025-05-04] MEDS: ASPIRIN 81 MG CHEWABLE TABLETS PO SCH (09:10)
[2025-05-04] MEDS: AZITHROMYCIN IVPB 500 MG/250 ML BAG IVPB SCH (09:11)
[2025-05-04] MEDS: ENOXAPARIN NA (PORCINE) 40 MG/0.4 ML DISP.SYRIN SQ SCH (09:11)
[2025-05-04] MEDS: INSULIN GLARGINE (LANTUS) 100 UNITS/ML UNITS SQ SCH (09:12)
[2025-05-04] MEDS: SODIUM CHLORIDE 0.45% 1,000 ML IV SCH ×2 (11:01→18:59)
[2025-05-04] MEDS ORDERED: INSULIN GLARGINE (LANTUS) 100 UNITS/ML UNITS SQ ONE (11:05)
[2025-05-04] MEDS: ASPIRIN COATED 81 MG TABLET.EC PO SCH (12:40)
[2025-05-04 13:04] LABS: GLUCOSE,RANDOM 268.0 mg/dL (74-106)
[2025-05-04 13:06] LABS: CO2 25.0 mmol/L (21-32)
[2025-05-04 13:10] LABS: CREATININE 0.85 mg/dL (0.55-1.3)
[2025-05-04] MEDS ORDERED: RAPID SEQUENCE INTUBATION KIT NR ONE (15:05)
[2025-05-05 07:07] LABS: ABSOLUTE IMMATURE GRANULOCYTES 0.20 x10^3/uL (0.0-0.031); BASOPHILS # 0.02 x10^3/uL (0.01-0.08); EOSINOPHIL % 0.6 % (0.7-5.8); EOSINOPHILS # 0.08 x10^3/uL (0.04-0.36); MCHC 30.7 g/dl (32.2-35.5); MEAN CELL VOLUME 71.4 fl (79.4-94.8); MEAN PLT VOLUME 10.4 fl (9.4-12.3); MONOCYTE # 0.80 x10^3/uL (0.24-0.86); MONOCYTE % 5.7 % (4.7-12.5); RDW 15.2 % (12.4-16.4)
[2025-05-05 07:24] LABS: GLUCOSE,RANDOM 161.0 mg/dL (74-106); TOT PROT 6.4 g/dl (6.4-8.2)
[2025-05-05 07:26] LABS: CO2 26.0 mmol/L (21-32)
[2025-05-05 07:27] LABS: ALK PHOS 125.0 U/L (40-150)
[2025-05-05 07:30] LABS: CREATININE 0.88 mg/dL (0.55-1.3); SGOT/AST 22.0 U/L (5-34); SGPT/ALT 17.0 U/L (0-55)
[2025-05-05] MEDS ORDERED: ACETAMINOPHEN 1000 MG/100 ML BAG IVPB PRN (08:38)
[2025-05-05] MEDS ORDERED: DEXTROSE 50%-WATER - 25 GM/50 ML VIAL IVPUSH PRN (08:38)
[2025-05-05] MEDS: CLOTRIMAZOLE 1% CREAM TP SCH (10:00)
[2025-05-05] MEDS ORDERED: MUPIROCIN 2% TOPICAL OINTMENT FOR DECOLONIZATION NS SCH (10:00)
[2025-05-05] MEDS: INSULIN ASPART SLIDING SCALE (NOVOLOG) 1 VIAL SQ SCH (12:43)
[2025-05-05] MEDS: INSULIN GLARGINE (LANTUS) 100 UNITS/ML UNITS SQ SCH (12:52)
[2025-05-05] MEDS: ENOXAPARIN NA (PORCINE) 40 MG/0.4 ML DISP.SYRIN SQ SCH (13:05)
[2025-05-05] MEDS: GABAPENTIN 100 MG CAPSULE PO SCH (13:05)
[2025-05-05] MEDS: ESCITALOPRAM OXALATE 20 MG TABLET PO SCH (13:05)
[2025-05-05] MEDS: amLODIPine BESYLATE 10 MG TABLET (FP) PO SCH (13:05)
[2025-05-05] MEDS: ASPIRIN COATED 81 MG TABLET.EC PO SCH (13:06)
[2025-05-05] MEDS: AZITHROMYCIN IVPB 500 MG/250 ML BAG IVPB SCH (13:06)
[2025-05-05 21:53] VITALS: RESP 18
[2025-05-05] MEDS: ATORVASTATIN CA 80 MG TABLET (FP) PO SCH (21:58)
[2025-05-05] MEDS ORDERED: CHLORHEXIDINE GLUCONATE 4% CLEANSER FOR DECOLONIZATION TP SCH (22:00)
[2025-05-06] MEDS: LEVOTHYROXINE NA 25 MCG TABLET (FP) PO SCH (06:01)
[2025-05-07 09:39] LABS: ABSOLUTE IMMATURE GRANULOCYTES 0.09 x10^3/uL (0.0-0.031); BASOPHILS # 0.03 x10^3/uL (0.01-0.08); EOSINOPHIL % 1.3 % (0.7-5.8); EOSINOPHILS # 0.15 x10^3/uL (0.04-0.36); MCHC 30.5 g/dl (32.2-35.5); MEAN CELL VOLUME 70.9 fl (79.4-94.8); MEAN PLT VOLUME 9.9 fl (9.4-12.3); MONOCYTE # 0.70 x10^3/uL (0.24-0.86); MONOCYTE % 6.0 % (4.7-12.5); RDW 14.7 % (12.4-16.4)
[2025-05-07 12:04] LABS: CO2 28.0 mmol/L (21-32); CREATININE 0.82 mg/dL (0.55-1.3); GLUCOSE,RANDOM 192.0 mg/dL (74-106); SGOT/AST 23.0 U/L (5-34); SGPT/ALT 22.0 U/L (0-55); TOT PROT 6.5 g/dl (6.4-8.2)
[2025-05-07 12:05] LABS: ALK PHOS 130.0 U/L (40-150)
[2025-05-07] MEDS: INSULIN ASPART SLIDING SCALE (NOVOLOG) 1 VIAL SQ SCH (16:54)
[2025-05-07] MEDS: CLOTRIMAZOLE 1% VAGINAL CREAM WITH APPLICATOR 45 GM TUBE VG SCH (21:12)
[2025-05-08] MEDS: MELATONIN 5 MG TABLETS PO ONE (04:18)
[2025-05-08] MEDS: INSULIN GLARGINE (LANTUS) 100 UNITS/ML UNITS SQ SCH (06:27)
[2025-05-08 09:57] LABS: ABSOLUTE IMMATURE GRANULOCYTES 0.11 x10^3/uL (0.0-0.031); BASOPHILS # 0.04 x10^3/uL (0.01-0.08); EOSINOPHIL % 1.3 % (0.7-5.8); EOSINOPHILS # 0.18 x10^3/uL (0.04-0.36); MCHC 30.1 g/dl (32.2-35.5); MEAN CELL VOLUME 70.9 fl (79.4-94.8); MEAN PLT VOLUME 10.0 fl (9.4-12.3); MONOCYTE # 0.82 x10^3/uL (0.24-0.86); MONOCYTE % 6.1 % (4.7-12.5); RDW 15.0 % (12.4-16.4)
[2025-05-08 11:08] LABS: GLUCOSE,RANDOM 223.0 mg/dL (74-106); TOT PROT 6.9 g/dl (6.4-8.2)
[2025-05-08 11:09] LABS: CO2 27.0 mmol/L (21-32)
[2025-05-08 11:11] LABS: ALK PHOS 122.0 U/L (40-150)
[2025-05-08 11:14] LABS: CREATININE 0.82 mg/dL (0.55-1.3); SGOT/AST 27.0 U/L (5-34); SGPT/ALT 25.0 U/L (0-55)
[2025-05-08] MEDS: INSULIN (NOVOLOG) ASPART 100 UNITS/ML 10ML VIAL SQ SCH (13:10)
[2025-05-08 14:09] VITALS: BMI 36.3
[2025-05-08] MEDS: POTASSIUM CHLORIDE ORAL LIQUID 20 MEQ/15 ML PO ONE (17:24)
[2025-05-09] MEDS: MELATONIN 5 MG TABLETS PO PRN (02:14)
[2025-05-09] MEDS: MELATONIN 5 MG TABLETS PO SCH (05:13)
[2025-05-09 10:13] LABS: MCHC 30.2 g/dl (32.2-35.5); MEAN CELL VOLUME 70.7 fl (79.4-94.8); MEAN PLT VOLUME 9.7 fl (9.4-12.3); RDW 14.6 % (12.4-16.4)
[2025-05-09 10:52] LABS: GLUCOSE,RANDOM 170.0 mg/dL (74-106)
[2025-05-09 10:53] LABS: TOT PROT 6.7 g/dl (6.4-8.2)
[2025-05-09 10:54] LABS: CO2 28.0 mmol/L (21-32)
[2025-05-09 10:55] LABS: ALK PHOS 113.0 U/L (40-150)
[2025-05-09 10:58] LABS: SGOT/AST 28.0 U/L (5-34); SGPT/ALT 25.0 U/L (0-55)
[2025-05-09 10:59] LABS: CREATININE 0.82 mg/dL (0.55-1.3)
[2025-05-09] MEDS: INSULIN (NOVOLOG) ASPART 100 UNITS/ML 10ML VIAL SQ SCH (11:49)
[2025-05-10] MEDS: BENZOCAINE/MENTH/CETYLPYRD CL 1 EACH LOZENGE MM PRN (10:21)
[2025-05-11 08:41] VITALS: BP 112/61; PULSE 87; TEMP 98.4
[2025-05-11] MEDS: PHENOL 177 ML SPRAY BOTTLE MM PRN (12:01)
== END 2025-05-11 13:42 | disposition short-term general hospital (02) | DRG 871 ==
LOC: JER 19:00 → JERBED 20:06 → J4W 05-03 03:59 → JICU 05-03 18:38 → J5S 05-05 08:34
PROVIDERS: ADMIT Hospitalist
DX: A40.9 Streptococcal sepsis, unspecified (principal); E11.10 Type 2 diabetes mellitus with ketoacidosis without coma; E11.42 Type 2 diabetes mellitus with diabetic polyneuropathy; E11.40 Type 2 diabetes mellitus with diabetic neuropathy, unspecified; I10 Essential (primary) hypertension; E03.9 Hypothyroidism, unspecified; E11.65 Type 2 diabetes mellitus with hyperglycemia; E78.5 Hyperlipidemia, unspecified; F32.A Depression, unspecified; Z79.4 Long term (current) use of insulin; R53.83 Other fatigue; B35.3 Tinea pedis
CPT/HCPCS: 36415; 70491-TC; 71045-TC-FY; 71250-TC; 74177-TC; 80048; 80053; 81003; 82010; 82308; 82803; 82962; 83036; 83605; 83690; 83735; 83930; 84100; 84484; 85025; 86140; 87040; 87077; 87086; 87637-QW; 87651; 93005; 93010; 93306-TC; 97116-GP; 97161-GP; 99285-25; Q9967